=== PATIENT | female | born 1985 | race Caucasian/White ===

== ENCOUNTER 2018-12-08 17:00 | Emergency (ER) | payer OTHER ==
[2018-12-08 17:35] VITALS: BP 102/65
--- NOTE | 2018-12-08 18:57 | ED ---
Upper Extremity Pain - HPI Summary HPI Summary: pt was at work and she states she was taping a box and she felt a pop to her right hand. she is right hand dominant. she states that she told someone at work. she continued to work. later in the day the pain worsened. she told her boss and she came in for evaluation. - History of Current Complaint Chief Complaint: UCUpperExtremity Stated Complaint: RT HAND INJURY W/C Hx Obtained From: Patient Hx Last Menstrual Period: 11/15/18 Onset/Duration: Started Hours Ago Timing: Intermittent Severity Initially: Mild - Allergies/Home Medications Allergies/Adverse Reactions: Allergies Allergy/AdvReac Type Severity Reaction Status Date / Time codeine Allergy Swelling/Re Verified 12/08/18 17:23 spiratory Penicillins Allergy Hives/Diff. Verified 12/08/18 17:23 Breathing/I tching Home Medications: Home Medications Naproxen [Naproxen 250 mg tab] 500 mg PO DAILY PRN 12/08/18 [History Confirmed 12/08/18] hydrOXYzine HCL TAB* [Atarax TAB 50 MG *] 50 mg PO TID PRN 12/08/18 [History Confirmed 12/08/18] lamoTRIgine [Lamotrigine] 200 mg PO BEDTIME 12/08/18 [History Confirmed 12/08/18 ] PMH/Surg Hx/FS Hx/Imm Hx Previously Healthy: Yes Respiratory History: Reports: Hx Asthma - Surgical History Surgery Procedure, Year, and Place: 3 c-sections Infectious Disease History: No Infectious Disease History: Denies: Traveled Outside the [place] in Last 30 Days - Social History Alcohol Use: None Substance Use Type: Reports: None Smoking Status (MU): Former Smoker Have You Smoked in the Last Year: Yes Review of Systems Constitutional: Negative Eyes: Negative ENT: Negative Cardiovascular: Negative Respiratory: Negative Gastrointestinal: Negative Negative: dysuria, hematuria Positive: Other - right hand pain. Negative: Edema Negative: Rash, Bruising Negative: Headache, Syncope Psychological: Normal All Other Systems Reviewed And Are Negative: No Physical Exam Triage Information Reviewed: Yes Vital Signs On Initial Exam: Initial Vitals Temp Pulse Resp BP Pulse Ox 98.5 F 68 20 102/65 98 12/08/18 17:26 12/08/18 17:26 12/08/18 17:26 12/08/18 17:26 12/08/18 17:26 Vital Signs Reviewed: Yes Appearance: Positive: Well-Appearing, No Pain Distress, Well-Nourished Skin: Positive: Warm, Dry Eyes: Positive: Normal, EOMI, GRABIEL ENT: Positive: Hearing grossly normal Neck: Positive: Supple, Nontender Respiratory/Lung Sounds: Positive: Clear to Auscultation, Breath Sounds Present Cardiovascular: Positive: Normal, RRR Abdomen Description: Positive: Nontender, Soft Bowel Sounds: Positive: Present Musculoskeletal: Positive: Strength/ROM Intact, 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 Course/Dx - Course Course Of Treatment: her exam is benign. her xray shows no bony abnormalities. I discussed with pt that the xray is limited. it does not show ligamentous or tendon injury. I encouraged her to take tylenol and motrin for pain. I further informed her that I would give her a referral to ortho. I encouraged her to take 2 days off work to give her hand a chance to rest. she stated that she cannot afford to be off work. I highly encouraged her to take it easy and to f/u with pcp and ortho. - Diagnoses Provider Diagnoses: Hand injury Discharge - Sign-Out/Discharge Documenting (check all that apply): Patient Departure All imaging exams completed and their final reports reviewed: Yes - Discharge Plan Condition: Stable Disposition: HOME Patient Education Materials: Hand Sprain (ED) Forms: *Work Release Referrals: Ryann Mercado PA [Primary Care Provider] - Robbin Quinn MD [Medical Doctor] - Additional Instructions: Please follow up with your pcp and Dr. Quinn. He follows up patient with work related injuries. take tylenol and motrin for pain. please try not to overuse your hand. I have given you a work excuse for 2 days in case you choose to use it. Please follow up with your primary care physician this week. - Billing Disposition and Condition Condition: STABLE Disposition: Home
== END 2018-12-08 19:00 | disposition home or self-care (01) ==
LOC: UCCORT 17:00
DX: S60.921A Unspecified superficial injury of right hand, initial encounter (principal); X58.XXXA Exposure to other specified factors, initial encounter; Y92.89 Other specified places as the place of occurrence of the external cause; Z88.0 Allergy status to penicillin; Z88.5 Allergy status to narcotic agent; Z87.891 Personal history of nicotine dependence; Z87.09 Personal history of other diseases of the respiratory system
CPT/HCPCS: 99211; G0463